=== PATIENT | female | born 1960 | race Caucasian/White ===

== ENCOUNTER 2023-05-07 07:26 | Emergency (ER) | payer OTHER ==
[2023-05-07 07:33] VITALS: BP 134/81; PULSE 75; RESP 18; TEMP 98.1; BMI 19.5
[2023-05-07] MEDS ORDERED: RABIES VACCINE (PCEC)/PF 2.5 UNIT/VIAL IM ONE ×2 (07:40→07:44)
== END 2023-05-07 08:09 | disposition home or self-care (01) ==
LOC: FER 07:26
PROC: 3E0234Z Introduction of Serum, Toxoid and Vaccine into Muscle, Percutaneous Approach (ICD-10-PCS; principal; 2023-05-07)
DX: Z23 Encounter for immunization (principal)
CPT/HCPCS: 90675; 99284-25

== ENCOUNTER 2023-05-11 07:34 | Emergency (ER) | payer OTHER ==
[2023-05-11 07:39] VITALS: BP 130/79; PULSE 60; RESP 18; TEMP 97.6; BMI 19.5
[2023-05-11] MEDS ORDERED: RABIES VACCINE (PCEC)/PF 2.5 UNIT/VIAL IM ONE ×2 (07:41→07:51)
== END 2023-05-11 08:00 | disposition home or self-care (01) ==
LOC: FER 07:34
PROC: 3E0234Z Introduction of Serum, Toxoid and Vaccine into Muscle, Percutaneous Approach (ICD-10-PCS; principal; 2023-05-11)
DX: Z20.3 Contact with and (suspected) exposure to rabies (principal)
CPT/HCPCS: 90675; 99281-25

== ENCOUNTER 2023-05-18 07:57 | Emergency (ER) | payer OTHER ==
[2023-05-18 08:04] VITALS: BP 122/74; PULSE 72; RESP 18; TEMP 98.4; BMI 19.5
[2023-05-18] MEDS ORDERED: RABIES VACCINE (PCEC)/PF 2.5 UNIT/VIAL IM ONE ×2 (08:05→08:08)
== END 2023-05-18 08:15 | disposition home or self-care (01) ==
LOC: FER 07:57
PROC: 3E0234Z Introduction of Serum, Toxoid and Vaccine into Muscle, Percutaneous Approach (ICD-10-PCS; principal; 2023-05-18)
DX: Z29.14 Encounter for prophylactic rabies immune globulin (principal)
CPT/HCPCS: 90675; 99281-25